=== PATIENT | male | born 1995 | race Caucasian/White ===

== ENCOUNTER 2016-06-13 15:12 | Emergency (ER) | payer OTHER ==
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
[2016-06-13 17:25] VITALS: BP 126/75; PULSE 67; RESP 18; TEMP 98.1; O2SAT 95
== END 2016-06-13 17:19 | disposition home or self-care (01) ==
DX: S42.002A Fracture of unspecified part of left clavicle, initial encounter for closed fracture (principal); S06.0X0A Concussion without loss of consciousness, initial encounter; V28.2XXA Unspecified motorcycle rider injured in noncollision transport accident in nontraffic accident, initial encounter; Y92.481 Parking lot as the place of occurrence of the external cause